=== PATIENT | male | born 1955 | race Caucasian/White ===

== ENCOUNTER 2021-06-15 18:07 | Emergency (ER) | payer MEDICARE, OTHER, MEDICAID ==
[~2021-06-15] VITALS: Ht 180 cm; Wt 83.4 kg
--- NOTE | 2021-06-15 18:42 | ED Upper Extremity ---
General Chief Complaint: Laceration Stated Complaint: L HAND THUMB LAC Nursing Triage Note: PT PRESENTS TO ED VIA POV FROM HOME WITH COMPLAINTS OF L THUMB LAC AFTER GETTING IT CAUGHT IN A SPRING WHEN USING HIS BOW. History of Present Illness Date Seen by Provider: Jun 15, 2021 Time Seen by Provider: 18:20 Initial Comments 65-year-old male was using his crossbow when it caused an injury to his left thumb. There is a laceration with obvious deformity to the distal aspect. Patient reports last tetanus 3-4 years ago. No other injuries. Onset: just prior to arrival Pain/Injury Location: left thumb Method of Injury: incised Allergies and Home Medications Allergies Uncoded Allergies: pain medications, unsure which ones (Adverse Reaction, Unknown, 06/15/21) Patient Home Medication List Home Medication List Reviewed: Yes Cephalexin (Cephalexin) 500 Mg Tablet, 500 MG PO QID Prescribed by: RASHIDA YANEZ on 06/15/212006 Hydrocodone/Acetaminophen (Hydrocodone-Acetamin 5-325 mg) 1 Each Tablet, 1 TAB PO Q6H PRN for PAIN-MODERATE (5-7) Prescribed by: RASHIDA YANEZ on 06/15/212007 Review of Systems Constitutional: no symptoms reported, see HPI Skin: see HPI, other (laceration left thumb) All Other Systems Reviewed Negative Unless Noted: Yes Past Qcmbiex-Vxvmuy-Wvgnpt Hx Patient Social History Tobacco Use?: No Substance use?: Yes Substance type: Marijuana Alcohol Use?: Yes Alcohol type: Beer Alcohol Frequency: Daily Pt feels they are or have been: No Immunizations Up To Date First/Initial COVID19 Vaccinat: 2020 COVID19 Vaccine State Editor: [place] Past Medical History Surgery/Hospitalization HX: 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 Family Medical History Reviewed Nursing Family Hx Physical Exam Vital Signs Vital Signs - First Documented 06/15/21 18:22 Temp 36.0 Pulse 90 Resp 18 B/P (MAP) 193/117 (142) Pulse Ox 97 Capillary Refill : Less Than 3 Seconds Height, Weight, BMI Height: '" Weight: lbs. oz. kg; 25.00 BMI Method: General Appearance: WD/WN, no apparent distress Cardiovascular: normal peripheral pulses, regular rate, rhythm Respiratory: chest non-tender, lungs clear, normal breath sounds Hand: Left, laceration, limited ROM (left thumb), soft tissue tenderness Neurologic/Tendon: normal sensation Neurologic/Psychiatric: no motor/sensory deficits, alert, normal mood/affect, oriented x 3 Skin: normal color, warm/dry Procedures/Interventions Wound Location: Upper Extremities (left thumb) Wound Length (cm): 5 Wound's Depth, Shape: into muscle, irregular Wound Explored: clean Irrigated w/ Saline (ccs): 2000 Betadine Prep?: Yes Anesthesia: 1% Lidocaine Volume Anesthetic (ccs): 10 Suture: Ethlion Suture Size: 4-0 Number of Sutures: 7 Sterile Dressing Applied?: Yes Progress Wound loosely approximated, no active bleeding. Bulky sterile dressing applied. Patient tolerated procedure well. Slight deformity in thumb due to comminuted fracture of distal phalynx. Progress/Results/Core Measures Results/Orders My Orders Orders - RASHIDA YANEZ Finger(S) (06/15/21 18:31) Lidocaine 1% Inj 50 Ml (Xylocaine 1% Inj (06/15/21 19:15) Cefazolin Injection (Ancef Injection) (06/15/21 19:15) Lidocaine 1% Inj 20 Ml (Xylocaine 1% Inj (06/15/21 19:29) Rx-Cephalexin Capsule (Rx-Keflex Capsule (06/15/21 20:02) Rx-Hydrocodone/Apap 5-325 Mg (Rx-Vicodin (06/15/21 20:15) Medications Given in ED Current Medications Medications Dose Ordered Sig/Ifeoma Route Start Time Stop Time Status Last Admin Dose Admin Acetaminophen/ Hydrocodone Bitart 1 ea Q6H PRN PO 06/15/21 20:15 06/15/21 20:22 1 EA Cefazolin Sodium 1000 mg/Sterile Water 10 ml @ 200 mls/hr ONCE ONCE IV 06/15/21 19:15 06/15/21 19:17 DC 06/15/21 19:42 200 MLS/HR Lidocaine HCl 20 ml STK-MED ONCE .ROUTE 06/15/21 19:29 06/15/21 19:32 DC 06/15/21 19:42 20 ML Vital Signs/I&O 06/15/21 18:22 Temp 36.0 Pulse 90 Resp 18 B/P (MAP) 193/117 (142) Pulse Ox 97 Blood Pressure Mean: 142 Progress Progress Note : Time: 18:20 Progress Note Patient seen and evaluated, will obtain x-ray of the left thumb to determine if fracture is present before proceeding. Bulky dressing applied. No active bleeding. 1899 comminuted fracture noted to the distal phalanx. Discussed with Dr. Martin, recommended thorough irrigation, closure, Keflex 10 days, and follow-up with orthopedics. 1999 Patient will follow up with Dr. Jett or Dr. Martin. Discharge instructions and return precautions reviewed. Diagnostic Imaging Diagonstic Imaging: Xray Plain Films/CT/US/NM/MRI: other (thumb) Comments NAME: [facility] REC#: [id number] PT STATUS: REG ER : 1955 PHYSICIAN: RASHIDA YANEZ ADMIT DATE: 06/15/21/ER Signed Date of Exam:06/15/21 FINGER(S) INDICATION: Left thumb injury. EXAMINATION: AP, oblique and lateral views of the left thumb. FINDINGS: Markedly comminuted fracture through the midportion of the 1st distal phalanx. No definite intra-articular involvement is identified. Degenerative findings are seen throughout the interphalangeal joints most pronounced in the index finger. There is also a tiny radiopaque foreign object within the tissues between the 1st and 2nd digits. IMPRESSION: Markedly comminuted 1st distal phalangeal fracture with small metallic foreign body seen in the tissues between the 1st and 2nd metacarpals. Dictated by: Dictated on workstation # [id number] Dict: 06/15/211901 Trans: 06/15/211907 [facility] [id number] Interpreted by: LEIA SHAFER MD Electronically signed by: LEIA SHAFER MD 06/15/211907 Departure Impression Primary Impression: Laceration of left thumb Qualified Codes: S61.012A - Laceration without foreign body of left thumb without damage to nail, initial encounter Additional Impression: Fracture of distal phalanx of thumb Qualified Codes: S62.522B - Displaced fracture of distal phalanx of left thumb, initial encounter for open fracture Disposition: HOME, SELF-CARE Condition: Improved Departure-Patient Inst. Decision time for Depature: 19:40 Referrals: [facility] [place] (PCP) Primary Care Physician EATON,FARIBA L SHAMPOO PERSON (Family) Primary Care Physician TOYA JETT MICHAEL P MD Patient Instructions: Finger Fracture (DC), Laceration Repair With Stitches (DC) Add. Discharge Instructions: Take antibiotics as prescribed. Leave the present dressing in place for the next 48 hours and then you may remove, shower and replace a clean dressing. Follow-up with Dr. Jett or Dr. Martin, call their office tomorrow for appointment. Your x-rays have been clouded to [facility] for Dr. Jett. Alternate between Tylenol 650 mg and ibuprofen 600 mg every 4 hours for pain. Ice and elevate your left thumb. Return to the emergency department for new, urgent healthcare needs. All discharge instructions reviewed with patient and/or family. Voiced understanding. Scripts Cephalexin (Cephalexin) 500 Mg Tablet 500 MG PO QID, #40 TAB 0 Refills Prov: RASHIDA YANEZ 06/15/21 Hydrocodone/Acetaminophen (Hydrocodone-Acetamin 5-325 mg) 1 Each Tablet 1 TAB PO Q6H PRN for PAIN-MODERATE (5-7), #12 TAB 0 Refills Prov: RASHIDA YANEZ 06/15/21 Copy Copies To 1: TOYA JETT DO; RAFITA MARTIN MD, AMY ARNP Jun 15, 2021 18:42
--- NOTE | 2021-06-15 19:07 | Diagnostic Imaging Report ---
INDICATION: Left thumb injury. EXAMINATION: AP, oblique and lateral views of the left thumb. FINDINGS: Markedly comminuted fracture through the midportion of the 1st distal phalanx. No definite intra-articular involvement is identified. Degenerative findings are seen throughout the interphalangeal joints most pronounced in the index finger. There is also a tiny radiopaque foreign object within the tissues between the 1st and 2nd digits. IMPRESSION: Markedly comminuted 1st distal phalangeal fracture with small metallic foreign body seen in the tissues between the 1st and 2nd metacarpals. Dictated by: Dictated on workstation # [id number]
[2021-06-15] MEDS ORDERED: LIDOCAINE 1% INJ 50 ML (XYLOCAINE) VIAL IJ ONE (19:15)
[2021-06-15] MEDS ORDERED: ceFAZolin INJECTION 1,000 MG in WATER (STERILE) FOR INJECTION 10 ML IV ONE (19:15)
[2021-06-15] MEDS ORDERED: LIDOCAINE 1% INJ 20 ML 20 ML VIAL ONE (19:29)
[2021-06-15] MEDS ORDERED: RX-CEPHALEXIN (KEFLEX) 250 MG CAP PPK#4 PO STA (20:02)
[2021-06-15] MEDS ORDERED: ACHD5005 PO (20:07)
[2021-06-15] MEDS ORDERED: CEPH500T PO ×2 (20:07→23:47)
[2021-06-15 20:23] VITALS: BP 144/102
== END 2021-06-15 20:30 | disposition home or self-care (01) ==
LOC: ER 18:09
DX: S62.522A Displaced fracture of distal phalanx of left thumb, initial encounter for closed fracture (principal); W49.02XA String or thread causing external constriction, initial encounter
CPT/HCPCS: 12042; 64450; 73140; 96374